=== PATIENT | female | born 1945 | race Caucasian/White ===

== ENCOUNTER 2020-02-23 12:50 | Emergency (ER) | payer OTHER ==
[~2020-02-23] VITALS: Ht 154.9 cm; Wt 104.3 kg
--- NOTE | ~2020-02-23 | EMS ---
[address] [address] EMS Patient Care Report Name: LAKISHA RICHARD Room #: REG DB Mays#: [id number] Admission: 02/23/20 Attend Phys: Discharge: Date of : 49 Report #: [id number] THIS REPORT FOR: //name// Report Transmitted: 02/23/2020 13:04 EMS Care Summary [place], [place] Incident [id number] @ 02/23/2020 12:27 Incident Location [address] [place] [address] DR MARTINI Patient LAKISHA RICHARD Female, 75 Years 1945 Patient Address Patient History Hypertension (HTN),Morbid Obesity,Dialysis, Patient Allergies No known allergies, Patient Medications Atorvastatin, Chief Complaint BLEEDING Disposition Transported No Lights/[place] Dispatch Reason Hemorrhage/Laceration Transported To [facility] Narrative RESPONDED TO DIALYSIS FOR HEMORRHAGE. UPON ARRIVAL PT FOUND SITTING IN CHAIR ALERT AND ORIENTED. STAFF HOLDING PRESSURE WITH GAUZE ON FISTULA. PT COMPLETED DIALYSIS BUT THE STAFF COULD NOT GET THE FISTULA TO STOP BLEEDING FOR THE PAST TWO HOURS. STAFF REPORT IT OOZES BLOOD WITHOUT PRESSURE. P45 FF WRAPPED ARM IN KOBAN WITH 5X9 GAUZE TO CONTROL BLEEDING. PT WAS LIFTED VIA VINICIUS TO COT. VITALS OBTAINED. PT TRANSPORTED TO [facility] WITH NO CHANGE IN CONDITION. PT [facility] [address] [place] [address] EMS Patient Care Report Name: LAKISHA RICHARD Room #: REG DB Mays#: [id number] Admission: 02/23/20 Attend Phys: Discharge: Date of : 49 Report #: [id number] TEAM LIFTED TO BED AND HANDRAILS UP. REPORT GIVEN TO NURSE. Initial Vitals @12:43P: 95,R: 14,BP: 211/66,Pain: 0/10,CO: 2,SpO2: 97, @12:35P: 74,R: 20,BP: 200/82,GCS: 15,SpO2: 97,Revised Trauma: 12, Assessments @12:45MENTAL:Person Oriented,Time Oriented,Event Oriented,Place Oriented,SKIN:HEENT:Head/Face: No Abnormalities,Eyes: No Abnormalities,Neck/Airway: No Abnormalities,LUNG SOUNDS:General: No Abnormalities,Left Upper: No Abnormalities,Right Upper: No Abnormalities,Left Lower: No Abnormalities,Right Lower: No Abnormalities,ABDOMEN:General: No Abnormalities,Left Upper: No Abnormalities,Right Upper: No Abnormalities,Left Lower: No Abnormalities,Right Lower: No Abnormalities,PELVIS//GI:Incontinence,EXTREMITIES:Left Arm: Weakness,Right Arm: Weakness,Right Arm: Other,Left Leg: Weakness,Right Leg: Weakness,PULSE:NEURO:No Abnormalities,@12:35MENTAL:No Abnormalities,SKIN:HEENT:Head/Face: No Abnormalities,Eyes: No Abnormalities,Neck/Airway: No Abnormalities,LUNG SOUNDS:General: No Abnormalities,Left Upper: No Abnormalities,Right Upper: No Abnormalities,Left Lower: No Abnormalities,Right Lower: No Abnormalities,ABDOMEN:General: No Abnormalities,Left Upper: No Abnormalities,Right Upper: No Abnormalities,Left Lower: No Abnormalities,Right Lower: No Abnormalities,PELVIS//GI:Incontinence,EXTREMITIES:Left Arm: Weakness,Right Arm: Weakness,Right Arm: Other,Right Leg: Weakness,Left Leg: Weakness,PULSE:NEURO:No Abnormalities, Impression Leakage of vascular dialysis catheter Procedures @12:35ALS AssessmentResponse: UnchangedSucceeded@12:36Oxygen FlowRate: 2 Device: Nasal Cannula (NC) Response: UnchangedSucceeded Timeline 12:26,Call Received 12:26,Dispatch Notified 12:27,Dispatched 12:28,En Route 12:32,On Scene 12:35,At Patient 12:35,ALS Assessment,Response: UnchangedSucceeded, 12:35,BP: 200/82 M,PULSE: 74,RR: 20 R,SPO2: 97 Ox,ETCO2: ,BG: ,PAIN: ,GCS: 15, 12:36,Oxygen FlowRate: 2 Device: Nasal Cannula (NC) Response: UnchangedSucceeded, 12:42,Depart Scene [address] [address] EMS Patient Care Report Name: LAKISHA RICHARD NATALIE Room #: REG DB MeadeR.#: [id number] Admission: 02/23/20 Attend Phys: Discharge: Date of : 49 Report #: [id number] 12:43,BP: 211/66 M,PULSE: 95,RR: 14 R,SPO2: 97 Ox,ETCO2: ,BG: ,PAIN: 0,GCS: , 12:45,At Destination 12:59,Call Closed Disclaimer v1.1 Copyright 2020 [employer] This EMS Care Summary contains data elements from the applicable legal record (which may be displayed differently). It is designed to provide pertinent information for the following purposes: continuity of care, clinical quality, and state data reporting. The complete legal record is available to ED staff and administrators of the receiving hospital in [employer]'s Patient Tracker. All data is provided "as is."
[~2020-02-23 12:50] MED LIST: ALEVE220 M1 PO; ALEVE220 MG PO; CLONIDINE0.1 PO; COMPRO25 MG RC; CYMBALTA20 MG PO; GABAPENTIN100 MG PO; GERI-TUSSI100 MG/5 M PO; HYDROCODON-ACE1 EAC5 PO; LEVEMIR SUBQ; NORVASC10 MG PO; NOVOLOG100 UNIT/1 SUBQ; PROCHLORPERAZIN25 MG RECTAL; ROBITUSSIN COU118 M3 PO; ROBITUSSIN10 MG; THERA-M CAPLET1 EAC1 PO; TIZANIDINE HCL4 MG PO; TOPROL XL50 MG PO; ZANAFLEX4 M1 PO
[2020-02-23] MEDS ORDERED: TYLENOL325 MG PO (14:15)
[2020-02-23] MEDS ORDERED: LIPITOR 20 MG T20 M1 PO (14:16)
[2020-02-23] MEDS ORDERED: B COMPLEX-FOLI1 EACH PO (14:17)
[2020-02-23] MEDS ORDERED: CALCIUM CARBON500 MG PO (14:18)
[2020-02-23] MEDS ORDERED: ZYRTEC 10 MG TA10 MG PO (14:18)
[2020-02-23] MEDS ORDERED: COLACE100 MG PO (14:19)
[2020-02-23] MEDS ORDERED: CATAPRES0.2 M1 PO (14:19)
[2020-02-23] MEDS ORDERED: COZAAR 25 MG TA25 M1 PO (14:23)
[2020-02-23] MEDS ORDERED: LOPRESSOR50 MG PO (14:24)
[2020-02-23] MEDS ORDERED: REGLAN 5 MG TAB5 MG PO (14:24)
[2020-02-23] MEDS ORDERED: MIRALAX119 GM PO (14:25)
[2020-02-23] MEDS ORDERED: PROTONIX40 M4 PO (14:25)
[2020-02-23] MEDS ORDERED: HYDROCERIN CRE454 GM TOP (14:26)
[2020-02-23 14:40] VITALS: BP 215/55
== END 2020-02-23 15:10 ==
LOC: ER 12:50
DX: T82.898A Other specified complication of vascular prosthetic devices, implants and grafts, initial encounter (principal); I10 Essential (primary) hypertension; E11.9 Type 2 diabetes mellitus without complications; Z79.4 Long term (current) use of insulin; Z79.899 Other long term (current) drug therapy

== ENCOUNTER 2020-05-25 16:17 | Inpatient (IN) | payer OTHER ==
[2020-05-25] VITALS (9 sets, daily range): BP systolic 72–125; BP diastolic 27–52
[~2020-05-25] VITALS: Ht 154.9 cm; Wt 99.1 kg
--- NOTE | ~2020-05-25 | EMS ---
[address] [address] EMS Patient Care Report Name: LAKISHA RICHARD NATALIE Room #: REG DB Mays#: [id number] Admission: 05/25/20 Attend Phys: Discharge: Date of : 49 Report #: [id number] THIS REPORT FOR: //name// Report Transmitted: 05/25/2020 17:28 EMS Care Summary [facility] MED-ACT Incident [id number] @ 05/25/2020 15:33 Incident Location [facility] [address] [place] [address] Patient LAKISHA FERRARI Female, 75 Years 1945 Patient Address [address] [place] [address] Patient History Hypertension (HTN),Kidney/Renal Failure,End Stage Renal Disease (ESRD),Depression,Type 2 Diabetes, Patient Allergies No known allergies, Patient Medications Atorvastatin, Hydrocodone, Levemir, Metoclopramide, Losartan, Clonidine, Chief Complaint Shortness of breath Disposition Transported No Lights/[place] Dispatch Reason Breathing Problem Transported To [facility] Narrative Arrived on scene to find pt laying in bed in no obvious distress. Staff stated [address] [address] EMS Patient Care Report Name: LAKISHA RICHARD Room #: REG Xavier.#: [id number] Admission: 05/25/20 Attend Phys: Discharge: Date of : 49 Report #: [id number] that pt had a decrease in SPO2 overnight and was placed on Oxygen by NC. Staff stated pt rebounded and levels got better. Staff stated that this afternoon pt had another drop in Oxygen levels down into the 80's and EMS was called. Staff stated this time pt did not rebound with the addition of Oxygen. Fire on scene advised initial SPO2 was in the 80's and placed pt on a NRB. Pt voiced no chief complaint. Pt denied any respiratory distress, chest pain. Pt stated she had COVID back in April but has had multiple negative tests since then. Pt agreed to be transported to [facility] for evaluation. Pt contact, HPI, PE, vitals. Pt was moved to cot via sheet lift. Pt was secured to the cot and in the unit. Vitals and ECG monitored during transport. Pt was switched to a NC at 4 LPM and maintained her O2 levels. Biocom to [facility] with no questions or orders. Pt moved to ER bed via sheet lift. Report to nurse and EMS cleared. Initial Vitals @15:55MI Suspected: false @16:08P: 90,R: 20,BP: 88/45,Pain: 0/10,GCS: 15,SpO2: 100,Revised Trauma: 11, @16:11P: 91,R: 20,BP: 126/61,GCS: 15,SpO2: 100,Revised Trauma: 12, @16:01P: 86,R: 20,BP: 95/52,Pain: 0/10,GCS: 15,Temp: 98.1F,SpO2: 95,Revised Trauma: 12, Assessments @15:47MENTAL:Person Oriented,Time Oriented,Event Oriented,Place Oriented,SKIN:HEENT:Head/Face: No Abnormalities,LUNG SOUNDS:General: No Abnormalities,ABDOMEN:General: No Abnormalities,PELVIS//GI:EXTREMITIES:Right Arm: Edema,Left Leg: Edema,Left Arm: Edema,Right Leg: Edema,PULSE:Radial: 2+ Normal,NEURO: Impression Acute Respiratory Distress (Dyspnea) Procedures @15:47Surgical Mask on PatientResponse: Unchanged@PTAOxygen FlowRate: 10 Device: Non Re-breather Mask (NRB) Response: ImprovedSucceeded@15:59Oxygen FlowRate: 4 Device: Nasal Cannula (NC) Response: UnchangedSucceeded Timeline HEALTH AND PHYSICAL EDUCATION PROFESSOR,Oxygen FlowRate: 10 Device: Non Re-breather Mask (NRB) Response: ImprovedSucceeded, 15:31,Call Received 15:31,Psap Call 15:33,Dispatched 15:34,En Route 15:41,On Scene 15:45,[place] [address] EMS Patient Care Report Name: HILARYARLETTELAKISHA [facility] Room #: REG DB Mays#: [id number] Admission: 05/25/20 Attend Phys: Discharge: Date of : 49 Report #: [id number] 15:47,Surgical Mask on Patient,Response: Unchanged 15:55,BP: / M,PULSE: ,RR: R,SPO2: Ox,ETCO2: ,BG: ,PAIN: ,GCS: , 15:58,Depart Scene 15:59,Oxygen FlowRate: 4 Device: Nasal Cannula (NC) Response: UnchangedSucceeded, 16:01,BP: 95/52 M,PULSE: 86,RR: 20 R,SPO2: 95 Ox,ETCO2: ,BG: ,PAIN: 0,GCS: 15, 16:08,BP: 88/45 M,PULSE: 90,RR: 20 R,SPO2: 100 Ox,ETCO2: ,BG: ,PAIN: 0,GCS: 15, 16:11,BP: 126/61 M,PULSE: 91,RR: 20 R,SPO2: 100 Ox,ETCO2: ,BG: ,PAIN: ,GCS: 15, 16:12,At Destination 16:36,Call Closed Disclaimer v1.1 Copyright 2020 [employer] This EMS Care Summary contains data elements from the applicable legal record (which may be displayed differently). It is designed to provide pertinent information for the following purposes: continuity of care, clinical quality, and state data reporting. The complete legal record is available to ED staff and administrators of the receiving hospital in [employer]'s Patient Tracker. All data is provided "as is."
[~2020-05-25 16:17] MED LIST changes: +B COMPLEX-FOLI1 EACH PO; +CALCIUM CARBON500 MG PO; +CATAPRES0.2 M1 PO; +COLACE100 MG PO; +COZAAR 25 MG TA25 M1 PO; +HYDROCERIN CRE454 GM TOP; +LIPITOR 20 MG T20 M1 PO; +LOPRESSOR50 MG PO; +MIRALAX119 GM PO; +PROTONIX40 M4 PO; +REGLAN 5 MG TAB5 MG PO; +TYLENOL325 MG PO; +ZYRTEC 10 MG TA10 MG PO
[2020-05-25 16:59] LABS: BE(vivo) 3.2 mmol/L (-2 to +3); HCO3 32.3 mmol/L (22.0-26.0); sO2 94.9 % (92.0-98.0)
[2020-05-25 17:00] LABS: PCO2 80.1 mmHg (35.0-45.0); pH 7.224 (7.360-7.450)
[2020-05-25 17:00] LABS: HEMATOCRIT 28.6 % (37.0-47.0); HEMOGLOBIN 8.7 gm/dL (12.0-15.0); MCH 29.6 pg (26.0-34.0); MCHC 30.3 g/dL (28.0-37.0); MCV 97.9 fL (80.0-100.0); PLATELET COUNT 296 thou/uL (150-400); RBC 2.92 mil/uL (4.20-5.00); RDW 19.1 % (10.5-14.5); WBC 13.3 thou/uL (4.0-11.0)
[2020-05-25 18:02] LABS: BE(vivo) 3.8 mmol/L (-2 to +3); HCO3 32.6 mmol/L (22.0-26.0); PCO2 77.4 mmHg (35.0-45.0); PO2 149.7 mmHg (80.0-100.0); pH 7.242 (7.360-7.450); sO2 98.5 % (92.0-98.0)
[2020-05-25 18:44] LABS: ALBUMIN 2.9 g/dL (3.4-5.0); CALCIUM 8.8 mg/dL (8.5-10.1); CREATININE 3.2 mg/dL (0.6-1.0); DIRECT BILIRUBIN 0.1 mg/dL (<0.1-0.2); TOTAL BILIRUBIN 0.5 mg/dL (0.2-1.0); TOTAL PROTEIN 6.1 g/dL (6.4-8.2)
[2020-05-25 19:31] LABS: POTASSIUM 4.1 mmol/L (3.5-5.1)
[2020-05-25 19:48] LABS: ABSOLUTE NEUTROPHILS 10.6 thou/uL (1.4-8.2)
[2020-05-25 19:50] LABS: ANISOCYTOSIS 2+; PLATELET ESTIMATE NORMAL; POIKILOCYTOSIS 2+; POLYCHROMASIA 1+
--- NOTE | 2020-05-25 22:17 | NUR ---
PT ARRIVED TO UNIT ROOM 236 @ 2044 WITH BIPAP. PT TRANFERRED OVER TO BED AND ADMISSION PAPERS SIGNED BY PATIENT. BPS HAVE BEEN LOW AND RENAL IS CONSULTED WITH [facility] OB/GYN DOCTOR AWARE. PT CURRENTLY NPO. PT IS COMPLAINING OF CHRONIC LOW EXTREMITY PAIN. ORDERS FROM TONY OCHOA FOR IV PRN FENTANYL FOR BREAK THROUGH PAIN. WILL CONTINUE TO MONITOR AND ICU ADMISSION STARTED. LIMITIED DUE TO PATIENT UNABLE TO COMMUNICATE WITH BIPAP ON.
[2020-05-26] VITALS (20 sets, daily range): BP systolic 90–138; BP diastolic 26–47
[2020-05-26 04:14] LABS: BE(vivo) 2.9 mmol/L (-2 to +3); HCO3 29.1 mmol/L (22.0-26.0); PO2 102.1 mmHg (80.0-100.0); pH 7.357 (7.360-7.450); sO2 97.4 % (92.0-98.0)
[2020-05-26 05:43] LABS: HEMATOCRIT 29.3 % (37.0-47.0); MCH 29.9 pg (26.0-34.0); MCHC 30.6 g/dL (28.0-37.0); MCV 97.7 fL (80.0-100.0); RDW 18.8 % (10.5-14.5); WBC 10.6 thou/uL (4.0-11.0)
[2020-05-26 07:03] LABS: ALBUMIN 2.8 g/dL (3.4-5.0); CALCIUM 9.2 mg/dL (8.5-10.1); CREATININE 3.5 mg/dL (0.6-1.0); POTASSIUM 3.9 mmol/L (3.5-5.1); TOTAL BILIRUBIN 0.4 mg/dL (0.2-1.0); TOTAL PROTEIN 6.3 g/dL (6.4-8.2)
--- NOTE | 2020-05-26 10:09 | EKG ---
[place] [address] [employer] [place] [address] ELECTROCARDIOGRAM REPORT Name: ARLETTE RICHARDAMBER ESTRADA Room #: 236-P ADM IN M.R.#: [id number] Admission: 05/25/20 Attend Phys: Randy Cordova MD Discharge: Date of : 49 Report #: [id number] [facility] ED Test Date: 2020-05-25 Test Time: 16:37:25 Pat Name: LAKISHA RICHARD Department: Room: 236 P Gender: F Bus Dispatcher [place]: KF : 1945 Requested By: Randy Cordova Order Number: [id number] : Matthias Nichole Measurements Intervals [place] Rate: 86 P: NM: QRS: 7 QRSD: 99 T: 153 QT: 351 QTc: 420 Interpretive Statements Atrial fibrillation Ventricular bigeminy Abnormal T, consider ischemia, lateral leads Compared to ECG 04/11/2012 16:31:16 Ventricular premature complex(es) now present T-wave abnormality now present Possible ischemia now present Sinus rhythm no longer present First degree AV block no longer present Poor R-wave progression no longer present Electronically Signed On 05-26-2020 10:09:09 MANAGEMENT INFORMATION SYSTEMS DIRECTOR by Matthias Nichole [email or web address] <ELECTRONICALLY SIGNED> By: Matthias Nichole MD, FAC 05/26/20 1009 1637 1637 Matthias Nichole MD, [facility] /EPI
--- NOTE | 2020-05-26 10:09 | EKG ---
[address] [employer] [place] [address] ELECTROCARDIOGRAM REPORT Name: LAKISHA RICHARD NATALIE Room #: 236-P ADM IN M.R.#: [id number] Admission: 05/25/20 Attend Phys: Randy Cordova MD Discharge: Date of : 49 Report #: [id number] [facility] ED Test Date: 2020-05-25 Test Time: 18:34:20 Pat Name: LAKISHA RICHARD Department: Room: 236 P Gender: F Diet Consultant: KF : 1945 Requested By: Randy Cordova Order Number: [id number] : Matthias Nichole Measurements Intervals [place] Rate: 81 P: CO: QRS: 10 QRSD: 99 T: 148 QT: 385 QTc: 447 Interpretive Statements Atrial fibrillation Abnormal R-wave progression, early transition Abnormal T, consider ischemia, lateral leads Compared to ECG 05/25/2020 16:37:25 Ventricular premature complex(es) no longer present T-wave abnormality still present Possible ischemia still present Electronically Signed On 05-26-2020 10:09:13 BOAT OUTBOARD ENGINE MECHANIC by Matthias Nichole [email or web address] <ELECTRONICALLY SIGNED> By: Matthias Nichole MD, FACC 05/26/20 1009 1834 1834 Matthias Nichole MD, [facility] /EPI
--- NOTE | 2020-05-26 10:14 | NUR ---
cm received phone call from [facility], just requesting updates , she from [facility] and she contracted in for dialysis. she only one that can get dialysis on [facility]. noted she was + covid in apr 2020. will cont following as needed for dc needs. she has assist for all adl's.
--- NOTE | 2020-05-26 10:51 | NUR ---
ASSUMED CARE OF PT AT 0700. PT DROWSY AND GETTING DIALISYS. WHEN AWAKE SHE ASKS FOR PAIN MEDICATION AND STATES THAT HER LEFT LEG IS HURTING
--- NOTE | 2020-05-26 12:30 | NUR ---
report received from jalil hernández rn. [facility].
--- NOTE | 2020-05-26 13:02 | NUR ---
FAXED CLINICAL UPDATE TO [facility] S[facility]KE WITH SANDY IN ADM SHE RECEIVED UPDATE. DP TO FOLLOW.
--- NOTE | 2020-05-26 16:23 | EKG ---
[address] [place] [employer] [place] [address] ELECTROCARDIOGRAM REPORT Name: HILARYLAKISHA Room #: 246-P ADM IN M.R.#: [id number] Admission: 05/25/20 Attend Phys: Randy Cordova MD Discharge: Date of : 49 Report #: [id number] [facility] Test Date: 2020-05-26 Test Time: 13:41:31 Pat Name: LAKISHA RICHARD Department: Room: 246 P Gender: F Feed House Supervisor: ROB : 1945 Requested By: Franoc Jensen Order Number: [id number] MD: Matthias Nichole Measurements Intervals [place] Rate: 94 P: MI: QRS: 4 QRSD: 99 T: 150 QT: 363 QTc: 454 Interpretive Statements Atrial fibrillation Ventricular premature complex Abnormal R-wave progression, late transition LVH with secondary repolarization abnormality Compared to ECG 05/25/2020 18:34:20 Ventricular premature complex(es) now present Left ventricular hypertrophy now present Early repolarization now present T-wave abnormality no longer present Possible ischemia no longer present Electronically Signed On 05-26-2020 16:22:55 LATHE SETUP OPERATOR by aMtthias Nichole [email or web address] <ELECTRONICALLY SIGNED> By: Matthias Nichole MD, [facility] 05/26/20 1622 1341 1341 Matthias Nichole MD, [facility] /EPI
--- NOTE | 2020-05-26 17:45 | NUR ---
R arm dialysis fistula- bruit, thrill present, dressing dry/intact. left arm dialysis fistula site.
[2020-05-27 00:49] VITALS: BP 103/34
--- NOTE | 2020-05-27 02:18 | NUR ---
ASSUMED CARE OF PATIENT FROM ICU. PATIENT REQUESTING PAIN MEDS. PO PAIN MED ORDER OBTAINED. IV PAIN MED DC'D. SCREAMS OUT FOR ANY NEEDS, SLIGHTLY REDIRECTABLE. SLEEPING AT THIS TIME. PROGRESSING TOWARDS POC GOALS.
[2020-05-27 05:45] LABS: HEMATOCRIT 30.4 % (37.0-47.0); HEMOGLOBIN 9.3 gm/dL (12.0-15.0); MCH 29.8 pg (26.0-34.0); MCHC 30.5 g/dL (28.0-37.0); MCV 97.6 fL (80.0-100.0); RBC 3.11 mil/uL (4.20-5.00); RDW 18.7 % (10.5-14.5); WBC 12.5 thou/uL (4.0-11.0)
[2020-05-27 06:12] LABS: CALCIUM 8.7 mg/dL (8.5-10.1); CREATININE 2.5 mg/dL (0.6-1.0); PHOSPHORUS 3.8 mg/dL (2.5-4.9); POTASSIUM 3.7 mmol/L (3.5-5.1)
[2020-05-27 07:09] LABS: HEP B SURFACE Ab(ANTI-HBS Non Reactive (()); HEPATITIS B SURFACE AG Negative (Negative)
[2020-05-27 08:00] VITALS: BP 110/45
[2020-05-27 08:09] VITALS: BP 119/47
--- NOTE | 2020-05-27 15:16 | NUR ---
CLINICAL UPDATE SENT TO [facility]. CARE TEAM INDICATE THAT PT IS PROGRESSING TOWARD GOAL OF DISHCAGE AND THAT SHE MAY BE MEDICALLY STABLE TO RETURN TO [facility] SOON TOMORROW. CM TO FOLLOW INDICATED WITH DC PLANNING.
[2020-05-27 15:33] VITALS: BP 110/39
--- NOTE | 2020-05-27 15:54 | NUR ---
FAXED CLINICAL UPDATE TO [facility] WITH SANDY IN ADM SHE RECEIVED UPDATE POSS DC TOMORROW.
[2020-05-27 18:49] VITALS: BP 106/44
--- NOTE | 2020-05-28 03:10 | NUR ---
ASSUMED CARE OF PT AT 1900. PT IS A/O X4 AND IS ON BEDREST. REMAINS ON 2 LITERS OF O2 NC. SR/AFIB WITH PVC ON THE MONITOR. C/O PAIN. PRN PAIN MEDICATION GIVEN DIRECTED. PRAFO BOOT IN PLACE TO LEFT HEEL. FALL PRECAUTIONS IMPLEMENTED, CALL LIGHT IS WITHIN REACH. WILL CONTINUE TO MONITOR.
[2020-05-28 04:45] LABS: HEMATOCRIT 31.9 % (37.0-47.0); HEMOGLOBIN 9.6 gm/dL (12.0-15.0); MCH 29.4 pg (26.0-34.0); MCV 97.7 fL (80.0-100.0); RBC 3.26 mil/uL (4.20-5.00); RDW 18.5 % (10.5-14.5); WBC 10.8 thou/uL (4.0-11.0)
[2020-05-28 04:59] LABS: CALCIUM 8.8 mg/dL (8.5-10.1); CREATININE 3.1 mg/dL (0.6-1.0); POTASSIUM 4.1 mmol/L (3.5-5.1)
[2020-05-28 07:24] VITALS: BP 114/54
--- NOTE | 2020-05-28 12:53 | NUR ---
ASSUMED CARE OF PATIENT AT 0700. ASSESSMENT CHARTED. MEDICATIONS ADMINISTERED PER EMAR. VSS. PATIENT IS A&OX4 AND VOICES PAIN 10/10 AMANDEEP. ON L SIDE OF HEEL. PATIENT IS CURRENTLY RECIEVING DIALYSIS; WHEN FINISHED 3L WAS REMOVED. PROVIDER NOTES STATED POSSIBLE THORACENTESIS. IF NOT PATIENT WILL D/C BACK TO [facility]
--- NOTE | 2020-05-28 14:34 | NUR ---
CARE TEAM INDICATED THAT PT IS MEDICALLY STABLE TO DISCHARGE BACK TO [facility] THIS DAY. ORDERS FAXED. CHART COPY MADE. PT AND SON AWARE AND AGREEABLE. STRETCHER VAN TRANSPORT ARRAGED THROUGH [facility]. NURSE GIVEN NUMBER FOR REPORT. NO OTHER CM INTERVENTION INDICATED. CASE CLOSED.
[2020-05-28 15:40] VITALS: BP 121/33
== END 2020-05-28 18:31 | DRG 871 ==
LOC: ER 16:17 → EROBS 19:34 → ICU 19:34 → 4W 05-26 23:10
PROVIDERS: Hospitalist; Internal Medicine Nephrology; Internal Medicine Pulmonary Disease; Nurse Practitioner; ADMIT Hospitalist; ATTEND Hospitalist
PROC: 5A09357 Assistance with Respiratory Ventilation, Less than 24 Consecutive Hours, Continuous Positive Airway Pressure (ICD-10-PCS; 2020-05-25)
PROC: 5A1D70Z Performance of Urinary Filtration, Intermittent, Less than 6 Hours Per Day (ICD-10-PCS; principal; 2020-05-26)
DX: A41.9 Sepsis, unspecified organism (principal); J96.01 Acute respiratory failure with hypoxia; N18.6 End stage renal disease; E43 Unspecified severe protein-calorie malnutrition; J96.02 Acute respiratory failure with hypercapnia; J15.6 Pneumonia due to other Gram-negative bacteria; Z68.41 Body mass index [BMI] 40.0-44.9, adult; I12.0 Hypertensive chronic kidney disease with stage 5 chronic kidney disease or end stage renal disease; I48.91 Unspecified atrial fibrillation; E87.70 Fluid overload, unspecified; G47.33 Obstructive sleep apnea (adult) (pediatric); E66.01 Morbid (severe) obesity due to excess calories; K59.00 Constipation, unspecified; G47.00 Insomnia, unspecified; E11.43 Type 2 diabetes mellitus with diabetic autonomic (poly)neuropathy; G89.29 Other chronic pain; E11.22 Type 2 diabetes mellitus with diabetic chronic kidney disease; Z95.820 Peripheral vascular angioplasty status with implants and grafts; Z99.2 Dependence on renal dialysis; Z79.899 Other long term (current) drug therapy
CPT/HCPCS: 10045; 10078; 32100

== ENCOUNTER 2020-05-30 13:35 | Inpatient (IN) | payer OTHER ==
[~2020-05-30] VITALS: Ht 154.9 cm; Wt 109.3 kg
--- NOTE | ~2020-05-30 | EMS ---
[address] [address] EMS Patient Care Report Name: LAKISHA RICHARD NATALIE Room #: REG DB Mays#: [id number] Admission: 05/30/20 Attend Phys: Discharge: Date of : 49 Report #: [id number] THIS REPORT FOR: //name// Report Transmitted: 05/30/2020 14:23 EMS Care Summary [facility] MED-ACT Incident [id number] @ 05/30/2020 12:38 Incident Location [address] [place] [address] Patient LAKISHA RICHARD Female, 75 Years 1945 Patient Address [address] [place] [address] Patient History Arthritis,End Stage Renal Disease (ESRD),Morbid Obesity,Depression,Anxiety,Chronic Pain,Hypothyroidism,Dialysis,Type 2 Diabetes, Patient Allergies No known allergies, Patient Medications Clonidine, Levemir, Metoclopramide, Glucagon, Pantoprazole, Other, Losartan, Atorvastatin, Chief Complaint Facility states pt had syncopal episode Disposition Transported No Lights/[place] Dispatch Reason Unconscious/Fainting Transported To [address] [address] EMS Patient Care Report Name: LAKISHA RICHARD Room #: REG ER Xavier.#: [id number] Admission: 05/30/20 Attend Phys: Discharge: Date of : 49 Report #: [id number] Narrative Dispatched initially to facility for a C1 nonbreather, downgraded to C1 syncope. Arrived on scene to find alert pt laying supine in bed. Facility states that pt went unresponisve and they couldn't arouse her and they didn't think they could feel a pulse. Facility states pt became alert but she had low BP. Pt has history of dialysis, but it was unclear as to what side her fistula was on. No trauma noted and pt expressed no complaints. Pt transported to [facility] and transfer of care made to ER nurse in room 9. No change in pt condition throughout transport. Initial Vitals @13:07P: 64,BP: 91/47,SpO2: 98, @13:30P: 62,BP: 107/71,SpO2: 99, @13:00P: 65,R: 14,BP: 70/34,Pain: 2/10,Temp: 97.9F,Glucose: 155,SpO2: 98, @13:10P: 63,SpO2: 100,OR Suspected: false Assessments @13:13MENTAL:Person Oriented,Time Oriented,Place Oriented,Event Oriented,SKIN:HEENT:LUNG SOUNDS:ABDOMEN:PELVIS//GI:EXTREMITIES:Left Leg: Abnormal Pulse,Right Leg: Edema,Right Leg: Other,Right Leg: Weakness,Left Leg: Other,Right Leg: Abnormal Pulse,Left Leg: Edema,Capillary Refill: Right Lower: 5 Sec,Capillary Refill: Right Upper: 3 Sec,Capillary Refill: Left Upper: 3 Sec,Capillary Refill: Left Lower: 5 Sec,PULSE:Radial: 2+ Normal,Pedal: 1+ Thready,NEURO: Impression Syncope / Fainting Procedures @13:1012-Lead ECG@13:09Saline Lock 5cc (20 ga) Site: Radial-RightResponse: UnchangedSucceeded@13:05Surgical Mask on PatientResponse: Unchanged Timeline 12:38,Call Received 12:38,Psap Call 12:38,Dispatched 12:39,En Route 12:45,On Scene 12:47,At Patient 13:00,BP: 70/34 M,PULSE: 65,RR: 14 R,SPO2: 98 Ox,ETCO2: ,B,PAIN: 2,GCS: , 13:05,Surgical Mask on Patient,Response: Unchanged 13:07,BP: 91/47 M,PULSE: 64,RR: R,SPO2: 98 Ox,ETCO2: ,BG: ,PAIN: ,GCS: , 13:09,Saline Lock 5cc 20 ga Site: Radial-Right,Response: UnchangedSucceeded, 13:10,12-Lead ECG, 13:10,BP: / M,PULSE: 63,RR: R,SPO2: 100 Ox,ETCO2: ,BG: ,PAIN: ,GCS: , 13:18,Depart Scene [address] [address] EMS Patient Care Report Name: LAKISHA RICHARD NATALIE Room #: REG MTalonR.#: [id number] Admission: 05/30/20 Attend Phys: Discharge: Date of : 49 Report #: [id number] 13:30,BP: 107/71 M,PULSE: 62,RR: R,SPO2: 99 Ox,ETCO2: ,BG: ,PAIN: ,GCS: , 13:30,At Destination 14:01,Call Closed Disclaimer v1.1 Copyright 2020 [employer] This EMS Care Summary contains data elements from the applicable legal record (which may be displayed differently). It is designed to provide pertinent information for the following purposes: continuity of care, clinical quality, and state data reporting. The complete legal record is available to ED staff and administrators of the receiving hospital in [employer]'s Patient Tracker. All data is provided "as is."
[2020-05-30 13:37] VITALS: BP 102/75
--- NOTE | 2020-05-30 14:47 | NUR ---
PER DR. SYLVESTER, CVC [L IJ] APPROVED FOR USE AT THIS TIME
[2020-05-30 14:58] VITALS: BP 100/45
[2020-05-30 15:17] LABS: APTT 33.6 Seconds (24.5-32.8); INR 1.1; PROTIME 12.3 Seconds (9.3-11.4)
[2020-05-30 15:35] LABS: ABSOLUTE NEUTROPHILS 8.4 thou/uL (1.4-8.2); BASOPHILS 0.6 % (0.0-2.0); EOSINOPHILS 1.6 % (0.0-3.0); HEMATOCRIT 23.9 % (37.0-47.0); LYMPHOCYTES 6.4 % (24.0-44.0); MCH 29.7 pg (26.0-34.0); MCHC 30.9 g/dL (28.0-37.0); MCV 96.2 fL (80.0-100.0); MONOCYTES 13.1 % (1.0-8.0); PLATELET COUNT 289 thou/uL (150-400); POLYS 78.3 % (36.0-66.0); RBC 2.49 mil/uL (4.20-5.00); RDW 17.5 % (10.5-14.5); WBC 10.8 thou/uL (4.0-11.0)
[2020-05-30 15:40] LABS: HEMOGLOBIN 7.4 gm/dL (12.0-15.0)
[2020-05-30 15:43] LABS: ANION GAP 4 mmol/L (7-16); BUN 37 mg/dL (7-18); CALCIUM 8.4 mg/dL (8.5-10.1); CHLORIDE 90 mmol/L (98-107); CO2 31 mmol/L (21-32); CREATININE 3.3 mg/dL (0.6-1.0); GLUCOSE 111 mg/dL (74-106); POTASSIUM 4.2 mmol/L (3.5-5.1); SODIUM 125 mmol/L (136-145)
[2020-05-30 15:49] LABS: ALBUMIN 2.5 g/dL (3.4-5.0); SGOT 13 U/L (15-37); SGPT 26 U/L (14-59); TOTAL BILIRUBIN 0.3 mg/dL (0.2-1.0); TOTAL PROTEIN 5.4 g/dL (6.4-8.2); TROPONIN-I <0.06 ng/mL (<0.06)
[2020-05-31] VITALS (9 sets, daily range): BP systolic 70–118; BP diastolic 25–97
--- NOTE | 2020-05-31 06:41 | NUR ---
ASSESSMENTS CHARTED, MEDS CHARTED GIVEN. PATIENT ARRIVED FROM ED AROUND 0230. SETTLED INTO ROOM PLACED ON TELEMETRY, ADMITTED INTO SYSTEM. PATIENT FROM [facility]. PLAN IS TO HAVE NUC MED LUNG SCAN TODAY, DIALYSIS. PATIENT C/O PAIN IN LEGS AND BOTTOM. REQUESTING PAIN MEDS FREQUENTLY. REQUESTING WATER. SWABS GIVEN. FALL PRECAUTIONS IN PLACE DURING SHIFT.
--- NOTE | 2020-05-31 09:06 | EKG ---
[place] [address] [facility] [place] [address] ELECTROCARDIOGRAM REPORT Name: LAKISHA RICHARD Room #: 201-P ADM IN M.R.#: [id number] Admission: 05/30/20 Attend Phys: Shayne Lawton Discharge: Date of : 49 Report #: [id number] [facility] Test Date: 2020-05-31 Test Time: 07:52:01 Pat Name: LAKISHA RICHARD Department: Room: 201 P Gender: F Collaborative Teacher: ROB : 1945 Requested By: Vidya Bernstein Order Number: [id number] MD: Dorian Rivera Measurements Intervals [place] Rate: 81 P: ND: QRS: 9 QRSD: 99 T: 155 QT: 371 QTc: 431 Interpretive Statements Atrial fibrillation Ventricular premature complex Abnormal R-wave progression, late transition T wave abnormality, consider lateral ischemia Compared to ECG 05/30/2020 13:44:31 Ventricular premature complex(es) now present Electronically Signed On 05-31-2020 9:06:05 SPECIAL CERTIFICATE DICTATOR by Dorian Rivera [email or web address] <ELECTRONICALLY SIGNED> By: Dorian Rivera MD, [facility] [id number] Dorian Rivera MD, [facility] /EPI
--- NOTE | 2020-05-31 10:45 | 2DMMODE ---
[facility] [place] [address] 2 D/M-MODE ECHOCARDIOGRAM Name: LAKISHA RICHARD NATALIE Room #: 201-P ADM IN M.R.#: [id number] Admission: 05/30/20 Attend Phys: Shayne Lawton Discharge: Date of : 49 Report #: [id number] THIS REPORT FOR: cc: Brent Lester MD, Christopher B. MD Santiago, Patrick MD [facility] ~ APPROVED REPORT Study performed: 05/31/2020 08:59:46 EXAM: Comprehensive 2D, Doppler, and color-flow Echocardiogram Patient Location: In-Patient Room #: 201 BSA: 1.98 HR: 69 bpm BP: 118/37 mmHg Rhythm: Atrial Fibrillation Other Information Study Quality: Fair Technically limited study due to body habitus. Indications Atrial Fibrillation Syncope 2D Dimensions IVSd: 10.41 (7-11mm) LVOT Diam: 19.03 (18-24mm) LVDd: 44.89 mm PWd: 10.14 (7-11mm) Ascending Ao: 28.47 (22-36mm) LVDs: 30.62 (25-40mm) Left Atrium: 57.17 (27-40mm) Aortic Root: 25.24 mm Volumes Left Atrial Volume (Systole) Single Plane 4CH: 99.65 mL Single Plane 2CH: 108.61 mL LA ESV Index: 58.00 mL/m2 Aortic Valve AoV Peak Jonny.: 2.60 m/s AO Peak Gr.: 27.13 mmHg LVOT Max P.17 mmHg AO Mean Gr.: 17.67 mmHg [facility] [address] [place] [address] 2 D/M-MODE ECHOCARDIOGRAM Name: LAKISHA RICHARD NATALIE Room #: 201-P [facility] IN ..#: [id number] Admission: 05/30/20 Attend Phys: Shayne Gallagher May Discharge: Date of : 49 Report #: [id number] AO V2 Mean: 2.04 m/s LVOT Max V: 1.02 m/s AO V2 VTI: 56.55 cm ANTONY Vmax: 1.11 cm2 Pulmonary Valve PV Peak Jonny.: 1.04 m/s PV Peak Gr.: 4.30 mmHg Tricuspid Valve TR Peak Jonny.: 3.58 m/s RAP Estimate: 7.00 mmHg TR Peak Gr.: 51.27 mmHg PA Pressure: 58.00 mmHg Left Ventricle The left ventricle is normal size. Mild concentric left ventricular hypertrophy. The overall left ventricular systolic function appears normal. LVEF is 60-65%. This study is not technically sufficient to allow evaluation of the LV diastolic function due to atrial fibrillation. Right Ventricle The right ventricle is normal size. The right ventricular systolic function is normal. Atria Left atrium is severely dilated. Right atrium is dilated. Aortic Valve The aortic valve is normal in structure. No aortic regurgitation is present. There is no aortic valvular stenosis. Mitral Valve The mitral valve is normal in structure. There is no mitral valve regurgitation noted. No evidence of mitral valve stenosis. Tricuspid Valve The tricuspid valve is normal in structure. Moderate to severe tricuspid regurgitation. Pulmonic Valve Pulmonic valve is not well visualized. The pulmonic valve is not well visualized. Great Vessels The aortic root is normal in size. IVC is not well visualized. [facility] [place] [address] 2 D/M-MODE ECHOCARDIOGRAM Name: LAKISHA RICHARD NATALIE Room #: 201-P ADM IN M.R.#: [id number] Admission: 05/30/20 Attend Phys: Shayne Massey Discharge: Date of : 49 Report #: [id number] <Conclusion> Normal left ventricular size with mild concentric hypertrophy Ejection fraction 60% Normal right ventricular size/function Severe left atrial enlargement Moderate right atrial enlargement Color-flow Doppler study was performed of the aortic/mitral/tricuspid/pulmonary valve Normal aortic/mitral valve structure and function Moderate tricuspid valve insufficiency Pulmonary artery systolic pressure estimated 58 mmHg Study performed and atrial fibrillation No pericardial effusion <ELECTRONICALLY SIGNED> By: Matthias Nichole MD, FACC 05/31/20 1045 1045 1045 Matthias Nichole MD, FACC /INF
--- NOTE | 2020-05-31 13:14 | NUR ---
WOUND CONSULT; THE BUTTOCKS/SACRUM IS REDDENED, SLOW TO BRITNEY. THE LEFT HEEL HAS A DEEP TISSUE INJURY THAT IS BRUISED BUT INTACT. NO S/S OF INFECTION. NO OTHER WOUNDS IDENTIED. RECOMMENDATIONS; -LEFT HEEL COLEEN USE A PRAFO BOOT ON AT ALL TIMES. -ZGUARD TO SACRUM/BUTTOCKS BID DISCUSSED WITH ALEJO
[2020-05-31 13:30] LABS: CHOLESTEROL 93 mg/dL (<200); HDL CHOLESTEROL 35 mg/dL (>40); LDL CHOLESTEROL 39 mg/dL (<100); TC:HDL 2.7 Ratio (Not establshd); TRIGLYCERIDE 97 mg/dL (<150); VLDL 19 mg/dL (<40)
--- NOTE | 2020-05-31 19:27 | NUR ---
RECEIVED PT'S CARE AROUND 0710; PT. ON BED; RESTING WITH EYES CLOSED; EQUAL CHEST RISING NOTICED; DURING AM ASSESSMENT PT. AOX4; C/O PAIN; PRN PAIN MEDICATION GIVEN WITH AM MEDICATIONS; SBP ON THE 70s; PHYSICIAN NOTIFIED; ORDERS ON PLACED; BG 109; SCHEDULED NOVOLOG AND LANTUS PLUS PRN; PHYSICIAN NOTIFIED; PER DR. VIVAS HOLD NOVOLOG AND GIVE LANTUS; LANTUS GIVEN; MONITORING; SBP ON THE 80s; [employer] NOTIFIED; NO NEW ORDERS; ELEVATED NPB; [employer] NOTIFIED; NO NEW ORDERS; PER DR. VIVAS PT. HR ON THE STRIP DURING AMBULANCE SHOWED THIRD DEGREE BLOCK; NO STRIP FOUND; AFIB ON THE MONITOR; GUS OCHOA AWARED; PER NURSE DIALYSIS REPORT 2.5 L PULLED; SBP ON THE 120s; PT. TOLERATED WELL; BG DURING DINNER 54; JUICE GIVEN; REASSESSED 90; PASSED ON REPORT; RECEIVED CALL FROM LAB PT. BLOOD CULTURE POSITIVE FOR GRAM + COCCI; PHYSICIAN PAGED AND NOTIFIED BY [employer] Detection[employer] TEXT; ORDERS RECEIVED; IV TEAM NOTIFIED ABOUT PT'S CENTRAL LINE; PER IV TEAM CENTRAL LINE NOT IN PLACED; NOT ABLE TO PLACED IV DUE TO PT. HAS R. AND L. FISTULE; NOTIFIED ABOUT IV ANTIBIOTICS; PER IV TEAM OK TO USE IT TONIGHT AND NOTIFIED IV NURSE FOR TOMORROW, 06/01/20; PASSED ON REPORT; AFIB ON THE MONITOR; ASSESSMENT CHARGED; FOLLOWING POC; PASSED ON REPORT;
[2020-06-01 03:54] VITALS: BP 110/31
[2020-06-01 04:33] LABS: HEMATOCRIT 24.9 % (37.0-47.0); HEMOGLOBIN 7.7 gm/dL (12.0-15.0); MCH 29.7 pg (26.0-34.0); MCHC 30.8 g/dL (28.0-37.0); MCV 96.5 fL (80.0-100.0); RBC 2.59 mil/uL (4.20-5.00); RDW 17.8 % (10.5-14.5); WBC 10.2 thou/uL (4.0-11.0)
--- NOTE | 2020-06-01 04:49 | NUR ---
ASSESSMENTS CHARTED, MEDS CHARTED GIVEN. RESTING IN BED. TURNED Q2 THROUGH SHIFT. USING LEFT IJ TRIPLE LUMEN. IJ NEEDS TO BE MOVED FORWARD OR BACK FOR CORRECT PLACEMENT. NEED TO CONTACT IR FOR ADJUSTMENT. FALL PRECAUTIONS IN PLACE DURING SHIFT.
[2020-06-01 05:19] LABS: CALCIUM 8.3 mg/dL (8.5-10.1); CREATININE 2.9 mg/dL (0.6-1.0); POTASSIUM 3.7 mmol/L (3.5-5.1)
--- NOTE | 2020-06-01 07:18 | EKG ---
[address] [place] [address] ELECTROCARDIOGRAM REPORT Name: LAKISHA RICHARD Room #: 201-P ADM IN M.R.#: [id number] Admission: 05/30/20 Attend Phys: Shayne Lawton Discharge: Date of : 49 Report #: [id number] [facility] ED Test Date: 2020-05-30 Test Time: 13:44:31 Pat Name: LAKISHA RICHARD Department: Room: 201 P Gender: F Esthetician: JANNETH : 1945 Requested By: Trent Benavides Order Number: [id number] MD: Matthias Nichole Measurements Intervals [place]in Rate: 64 P: NC: QRS: 13 QRSD: 97 T: 153 QT: 406 QTc: 419 Interpretive Statements Atrial fibrillation Abnormal T, consider ischemia, lateral leads Compared to ECG 05/26/2020 13:41:31 T-wave abnormality now present Possible ischemia now present Ventricular premature complex(es) no longer present Left ventricular hypertrophy no longer present Early repolarization no longer present Electronically Signed On 06-01-2020 7:18:45 SEO MANAGER by Matthias Nichole [email or web address] <ELECTRONICALLY SIGNED> By: Matthias Nichole MD, FACC 06/01/20 0718 1344 1344 Matthias Nichole MD, FAC /EPI
[2020-06-01 08:00] VITALS: BP 118/39
--- NOTE | 2020-06-01 08:08 | NUR ---
ASSUMED PT CARE 0700. PT SLEEPING. PTS BLOOD GLUCOSE WAS LOW, TREATED HER PER HYPOGLYCEMIA PROTOCOL. VSS. PT ALERT AND DENIES PAIN AT THIS TIME.
[2020-06-01 10:09] LABS: BE(vivo) 3.2 mmol/L (-2 to +3); HCO3 32.4 mmol/L (22.0-26.0); PO2 91.5 mmHg (80.0-100.0); sO2 94.8 % (92.0-98.0)
[2020-06-01 10:12] LABS: PCO2 83.3 mmHg (35.0-45.0); pH 7.208 (7.360-7.450)
--- NOTE | 2020-06-01 11:49 | NUR ---
WOUND CARE F/U; THE LEFT HEEL DTI HAS NOT ADVANCED. CUTRRENTLY USING A SILAVER FOAM DRESSING AND A PRAFO BOOT. THE PATIENT IS MORE COMFORTABLE WITH STAFF TODAY. ENOURAGED THE PATIENT TO BE COMPLIANT WITH OUR WOUND CARE TREATMENTS.. RECOMMENDATIONS; CONTINUE POC DISCUSSED W/ RN
[2020-06-01 11:56] LABS: BE(vivo) 4.3 mmol/L (-2 to +3); HCO3 31.4 mmol/L (22.0-26.0); PCO2 63.6 mmHg (35.0-45.0); sO2 84.7 % (92.0-98.0)
[2020-06-01 11:57] LABS: PO2 54.8 mmHg (80.0-100.0); pH 7.312 (7.360-7.450)
--- NOTE | 2020-06-01 13:47 | NUR ---
ASSESSMENT: CM REVIEWED CHART. PT WAS ADMITTED FROM [facility] DUE TO AMS, SYNCOPE, HYPOTENSION. PT WAS JUST RECENTLY HERE AT [facility] FOR RECENT DIAGNOSIS OF AFIB AND DISCHARGED ON 05/28/20. PT HAS HX OF ESRD AND RECEIVES DIALYSIS . CARDIOLOGY IS ON THE CASE WELL RENAL PHYSICIAN. CM SPOKE WITH PATIENTS AUGUST AVILEZ. PLANS ARE FOR PATIENT TO RETURN TO [facility] ONCE MEDICALLY STABLE TO DO SO. CM SPOKE WITH GLORIA WESTBROOK FROM [facility] WHO REPORTS SHE HAS RECEIVED UPDATES ON PATIENT. CM WILL CONTINUE TO FOLLOW TO ASSIST NEEDED. CM CLARIFYING WITH GLORIA WESTBROOK AT [facility] IF SHE WILL NEED ANOTHER COVID TEST PRIOR TO RETURNING. CM WILL CONTINUE TO FOLLOW TO ASSIST NEEDED.
[2020-06-01 16:00] VITALS: BP 154/38
--- NOTE | 2020-06-01 17:50 | NUR ---
FAXED CLINICAL UPDATE TO [facility] SPOKE WITH SANDY IN ADM SHE RECEIVED UPDATE.
[2020-06-01 19:54] VITALS: BP 115/68
[2020-06-02 04:55] VITALS: BP 148/34
--- NOTE | 2020-06-02 05:02 | NUR ---
ASSESSMENTS CHARTED, MEDS CHARTED GIVEN. PATIENT DENIED PAIN AT BEGINNING OF SHIFT. VERY LETHARGIC. PATIENTS BG WAS IN THE 30'S IN THE MORNING AND STAYED ON THE LOW SIDE DURING THE DAY. DID NOT GIVEN EVENING INSULINS. PATIENT WENT ON BIPAP DURING THE EVENING. TURNED. FALL PRECAUTIONS IN PLACE DURING SHIFT.
[2020-06-02 07:29] VITALS: BP 114/91
[2020-06-02] MEDS ORDERED: MIDODRINE HCL 55 M1 PO (07:36)
[2020-06-02] MEDS ORDERED: LANTUS SUBQ (07:37)
--- NOTE | 2020-06-02 09:37 | NUR ---
VAT SPOKE TO DR VIVAS ABOUT CVAD IN UPPER SVC, HE ORDERED IT OUT TODAY PRIOR TO DISCHARGE. GONZALO RN NOTIFIED
--- NOTE | 2020-06-02 09:47 | NUR ---
Note Given: Y Facility List Provided:Y Guru Foster: None Selected
--- NOTE | 2020-06-02 14:47 | NUR ---
DCP SPOKE TO RAGHAV KOCH REGARDING PATIENT'S TIME OF DISCHARGE AND TRANSPORTATION BY [facility]. HE WAS AGREEABLE AND REQUESTED TO SPEAK TO PATIENT'S NURSE REGARDING MEDICAL STATUS. ALEJO SÁNCHEZ TO CALL SON & UPDATE. RAGHAV RICHARD [phone]
[2020-06-02 15:08] VITALS: BP 153/57
--- NOTE | 2020-06-02 16:04 | NUR ---
ASSUMED CARE SHIFT CHANGE. ASSESSMENTS CHARTED. MEDS GIVEN. PT AWAKE MUCH MORE ALERT THIS SHIFT. DIALYSIS THIS SHIFT WITH 1.5L REMOVED. PT ANURIC. PT TOLERATED WELL. BIPAP ON FOR PART OF SHIFT. PT TO DC BACK TO [facility]. REPORT TO BE CALLED. PT LEFT WITH ALL BELONGINGS. FAMILY UPDATED. TELE REMOVED. CENTRAL LINE REMOVED WITH TIP INTACT.
--- NOTE | 2020-06-02 16:11 | NUR ---
PT DISCHARGING TODAY BACK TO [facility] FAXED DC ORDERS/SUMMARY RECEIVED CONFIRMATION SPOKE WITH SANDY IN ADM TRANSPORT BY AMBULANCE ARRANGED FOR D1500 TODAY. SON NOTIFIED AND UNIT NOTIFIED CHART COPY BY US. RN TO CALL REPORT.
== END 2020-06-02 16:00 | DRG 314 ==
LOC: ER 13:35 → EROBS 17:08 → 2N 17:08
PROVIDERS: Nurse Practitioner; Nurse Practitioner Family; ADMIT Hospitalist; ATTEND Hospitalist
DX: I95.9 Hypotension, unspecified (principal); E43 Unspecified severe protein-calorie malnutrition; N18.6 End stage renal disease; G93.41 Metabolic encephalopathy; L03.116 Cellulitis of left lower limb; L03.115 Cellulitis of right lower limb; E87.1 Hypo-osmolality and hyponatremia; R78.81 Bacteremia; I12.0 Hypertensive chronic kidney disease with stage 5 chronic kidney disease or end stage renal disease; J81.1 Chronic pulmonary edema; Z68.42 Body mass index [BMI] 45.0-49.9, adult; I48.91 Unspecified atrial fibrillation; D64.9 Anemia, unspecified; E11.22 Type 2 diabetes mellitus with diabetic chronic kidney disease; R53.81 Other malaise; K21.9 Gastro-esophageal reflux disease without esophagitis; E11.43 Type 2 diabetes mellitus with diabetic autonomic (poly)neuropathy; K31.84 Gastroparesis; E53.8 Deficiency of other specified B group vitamins; E11.649 Type 2 diabetes mellitus with hypoglycemia without coma; Z99.2 Dependence on renal dialysis; Z79.4 Long term (current) use of insulin; Z79.899 Other long term (current) drug therapy
CPT/HCPCS: 10081; 32100